=== PATIENT | female | born 1990 | race African-American/Black ===

== ENCOUNTER 2019-07-21 10:46 | Emergency (ER) | payer MEDICAID ==
[~2019-07-21] VITALS: Ht 170.2 cm; Wt 88.0 kg
[2019-07-21] MEDS ORDERED: SODIUM CHLORIDE 0.9% 1,000 ML IV ONE (10:58)
[2019-07-21 12:04] LABS: BASOPHILS % 0.5 % (0.0-2.0); EOSINOPHILS % 1.5 % (0.0-5.0); HEMATOCRIT. 37.6 % (36.0-48.0); HEMOGLOBIN. 12.5 g/dL (12.0-16.0); LYMPHOCYTES % 27.1 % (20.0-50.0); MEAN CORPUSCULAR HEMOGLOBIN 27.8 pg (28.0-32.0); MEAN CORPUSCULAR VOLUME 83.7 fL (81.0-99.0); MEAN PLATELET VOLUME 10.3 fl (7.4-10.4); MONOCYTES % 7.3 % (2.0-8.0); NEUTROPHILS % 63.6 % (40.0-76.0); PLATELET 231 x1000/uL (130-400); RED BLOOD CELL COUNT 4.49 mill/uL (4.2-5.4); RED CELL DISTRIBUTION WIDTH 13.1 % (11.6-14.6)
[2019-07-21 12:13] LABS: PROTHROMBIN TIME 10.7 sec (9.6-11.0)
[2019-07-21 12:14] LABS: CHLORIDE 107 mEq/L (98-107)
[2019-07-21 12:21] LABS: CLARITY URINE CLEAR (CLEAR); COLOR URINE YELLOW (YELLOW); KETONES URINE NEGATIVE (NEGATIVE); LEUKOCYTE ESTERASE URINE NEGATIVE (NEGATIVE); NITRITE URINE NEGATIVE (NEGATIVE); OCCULT BLOOD URINE 2+ (NEGATIVE); PROTEIN URINE NEGATIVE (NEGATIVE); SPECIFIC GRAVITY URINE 1.003 (1.005-1.030); UROBILINOGEN URINE 0.2 E.U./dL (0.2-1.0)
[2019-07-21 12:38] LABS: B-HCG QUANTITATIVE 1161 mIU/mL (<3)
[2019-07-21 12:38] LABS: CANNABINOID URINE SCREEN NEGATIVE (NEGATIVE); METHADONE URINE SCREEN NEGATIVE (NEGATIVE); OPIATES URINE SCREEN NEGATIVE (NEGATIVE); PHENCYCLIDINE URINE SCREEN NEGATIVE (NEGATIVE)
[2019-07-21 12:39] LABS: *AMPHETAMINES SCREEN URINE NEGATIVE (NEGATIVE); *BARBITURATES SCREEN URINE NEGATIVE (NEGATIVE); *BENZODIAZEPINES SCREEN URINE NEGATIVE (NEGATIVE); *COCAINE SCREEN URINE NEGATIVE (NEGATIVE)
[2019-07-21] MEDS ORDERED: FENTANYL CITRATE/PF 50MCG/ML 2ML VIAL IV ONE (13:00)
[2019-07-21] MEDS ORDERED: ONDANSETRON HCL 4MG/2ML INJ IV ONE ×2 (13:00→18:45)
[2019-07-21 13:48] LABS: HCG SCREEN POSITIVE
[2019-07-21] MEDS ORDERED: ACETAMINOPHEN 325MG TABLET PO ONE ×2 (15:00→17:30)
[2019-07-21] MEDS ORDERED: METHOTREXATE SODIUM/PF 50 MG/2 ML VIAL IM NR (17:00)
[2019-07-21] MEDS ORDERED: MORPHINE SULFATE 4 MG/ML CPJ (NOT FOR IM USE) IV ONE (18:45)
[2019-07-21 21:29] VITALS: BP 115/75
[2019-07-24] MEDS ORDERED: IBUP-2029 MT (06:30)
== END 2019-07-21 21:39 | disposition home or self-care (01) ==
LOC: ER 10:46 → CANRESERV 16:24 → ENRESERV 16:24 → CANBEDREQ 17:58 → ER 21:39
DX: O46.91 Antepartum hemorrhage, unspecified, first trimester (principal); O00.90 Unspecified ectopic pregnancy without intrauterine pregnancy; O99.411 Diseases of the circulatory system complicating pregnancy, first trimester; I49.9 Cardiac arrhythmia, unspecified; Z3A.01 Less than 8 weeks gestation of pregnancy
CPT/HCPCS: 36415; 76801; 76817; 80053; 80305; 81003; 81025; 84702; 84703; 85025; 85610; 86850; 86900; 86901; 87086; 93005; 96374; 96375; 96376; 99284; J2270; J2405; J3010; J7030; J9260; Z7610; 99291

== ENCOUNTER 2019-07-23 11:35 | Inpatient (IN) | payer MEDICAID ==
[~2019-07-23] VITALS: Ht 153.9 cm; Wt 87.6 kg
[2019-07-23] MEDS ORDERED: SODIUM CHLORIDE 0.9% 1,000 ML IV ONE (12:06)
[2019-07-23 13:13] LABS: BASOPHILS % 0.2 % (0.0-2.0); EOSINOPHILS % 0.3 % (0.0-5.0); HEMATOCRIT. 36.7 % (36.0-48.0); HEMOGLOBIN. 12.1 g/dL (12.0-16.0); LYMPHOCYTES % 8.8 % (20.0-50.0); MEAN CORPUSCULAR HEMOGLOBIN 27.6 pg (28.0-32.0); MEAN CORPUSCULAR VOLUME 83.5 fL (81.0-99.0); MEAN PLATELET VOLUME 9.8 fl (7.4-10.4); MONOCYTES % 3.4 % (2.0-8.0); NEUTROPHILS % 87.3 % (40.0-76.0); PLATELET 212 x1000/uL (130-400); RED CELL DISTRIBUTION WIDTH 13.1 % (11.6-14.6)
[2019-07-23 13:18] LABS: CHLORIDE 106 mEq/L (98-107)
[2019-07-23 13:19] LABS: INR 1.1; PROTHROMBIN TIME 11.4 sec (9.6-11.0)
[2019-07-23 13:28] LABS: B-HCG QUANTITATIVE 452 mIU/mL (<3); HCG SCREEN POSITIVE
[2019-07-23] MEDS ORDERED: MORPHINE SULFATE 4 MG/ML CPJ (NOT FOR IM USE) IV ONE (14:45)
[2019-07-23] MEDS ORDERED: ONDANSETRON HCL 4MG/2ML INJ IV ONE (14:45)
[2019-07-23 16:01] LABS: CLARITY URINE CLOUDY (CLEAR); COLOR URINE ORANGE (YELLOW); KETONES URINE 2+ (NEGATIVE); LEUKOCYTE ESTERASE URINE NEGATIVE (NEGATIVE); NITRITE URINE NEGATIVE (NEGATIVE); OCCULT BLOOD URINE 3+ (NEGATIVE); PH URINE 6.5 (4.5-8.0); PROTEIN URINE TRACE (NEGATIVE); SPECIFIC GRAVITY URINE 1.007 (1.005-1.030); UROBILINOGEN URINE 0.2 E.U./dL (0.2-1.0)
[2019-07-23 16:18] LABS: *AMPHETAMINES SCREEN URINE NEGATIVE (NEGATIVE); *BARBITURATES SCREEN URINE NEGATIVE (NEGATIVE); *BENZODIAZEPINES SCREEN URINE NEGATIVE (NEGATIVE)
[2019-07-23 16:19] LABS: *COCAINE SCREEN URINE NEGATIVE (NEGATIVE); CANNABINOID URINE SCREEN NEGATIVE (NEGATIVE); METHADONE URINE SCREEN NEGATIVE (NEGATIVE); PHENCYCLIDINE URINE SCREEN NEGATIVE (NEGATIVE)
[2019-07-23] MEDS ORDERED: CEFAZOLIN 2000MG PREMIX 100 ML IV ONE (16:30)
[2019-07-23 16:33] LABS: OPIATES URINE SCREEN PRESUMTIVE POSITIVE (NEGATIVE)
[2019-07-23] MEDS ORDERED: BUPIVACAINE HCL 0.5% (5MG/ML) 50ML ONE (16:50)
[2019-07-23] MEDS ORDERED: FENTANYL CITRATE/PF 50MCG/ML 2ML VIAL ONE (16:50)
[2019-07-23] MEDS ORDERED: PROPOFOL 200MG/20ML VIAL IV ONE (16:50)
[2019-07-23] MEDS ORDERED: ROCURONIUM BROMIDE 10MG/ML VIAL 5ML IV ONE (16:50)
[2019-07-23] MEDS ORDERED: CEFAZOLIN SODIUM 1000MG/VIAL ONE (16:50)
[2019-07-23] MEDS ORDERED: LIDOCAINE HCL/PF 1% 10 MG/ML 5ML VIAL ONE (16:50)
[2019-07-23] MEDS ORDERED: MIDAZOLAM HCL 2 MG/2 ML VIAL ONE (16:50)
[2019-07-23] MEDS ORDERED: SKIN ADHESIVE 0.7 GM EA TOP ONE (16:50)
[2019-07-23] MEDS ORDERED: METOCLOPRAMIDE HCL 10MG/2ML VIAL ONE (16:50)
[2019-07-23] MEDS ORDERED: MORPHINE SULFATE 2 MG/ML CPJ (NOT FOR IM USE) IV ONE (16:50)
[2019-07-23] MEDS ORDERED: SUCCINYLCHOLINE CHLORIDE 200MG/10ML IV ONE (16:50)
[2019-07-23] MEDS ORDERED: PHENYLEPHRINE HCL 10 MG/ML 1ML (IV VIAL) IV ONE (16:53)
[2019-07-23] MEDS ORDERED: EPHEDRINE SULFATE 50MG/ML VIAL ONE (16:53)
[2019-07-23] MEDS ORDERED: ONDANSETRON HCL 4MG/2ML INJ IV PRN ×2 (17:30→19:45)
[2019-07-23] MEDS ORDERED: HYDROMORPHONE HCL/PF 2MG/ML CPJ IV PRN (17:30)
[2019-07-23] MEDS ORDERED: FENTANYL CITRATE/PF 50MCG/ML 2ML VIAL IV PRN (17:30)
[2019-07-23] MEDS ORDERED: DEXAMETHASONE 4MG/ML 1ML VIAL ONE (17:39)
[2019-07-23] MEDS: LACTATED RINGERS 1,000 ML IV SCH (17:42)
[2019-07-23] MEDS ORDERED: BUPIVACAINE HCL/PF 0.5% (5MG/ML) 10ML ONE (17:51)
[2019-07-23] MEDS ORDERED: BUPIVACAINE HCL/EPINEPHRINE/PF 0.5%/0.0005 10ML ONE (17:51)
[2019-07-23] MEDS ORDERED: CEFAZOLIN 2000MG in DEXTROSE 5% WATER 100ML IV NR (18:00)
[2019-07-23] MEDS ORDERED: HYDROMORPHONE HCL/PF 2MG/ML (OR) ONE (18:31)
[2019-07-23] MEDS ORDERED: NEOSTIGMINE METHYLSULFATE 1MG/ML 10 ML VIAL ONE (18:37)
[2019-07-23] MEDS ORDERED: GLYCOPYRROLATE 0.2 MG/ML 2ML VIAL ONE ×2 (18:37→19:04)
[2019-07-23] MEDS ORDERED: KETOROLAC 30MG/ML VIAL IV PRN (19:45)
[2019-07-23] MEDS ORDERED: ACETAMINOPHEN 650MG SUPP PR PRN (19:45)
[2019-07-23 20:00] VITALS: BP 107/58
[2019-07-23] MEDS ORDERED: KETOROLAC 30MG/ML VIAL IM NR (20:28)
[2019-07-23] MEDS: FAMOTIDINE 20MG/2ML VIAL IV SCH (20:38)
[2019-07-23] MEDS ORDERED: KETOROLAC 60MG/2ML VIAL IM NR (21:00)
[2019-07-24] VITALS: BP 108/75
[2019-07-24] MEDS: LACTATED RINGERS 1,000 ML IV SCH ×2 (01:29→08:42)
[2019-07-24 04:00] VITALS: BP 99/64
[2019-07-24] MEDS ORDERED: IBUP-2029 MT (06:30)
[2019-07-24] MEDS ORDERED: POTASSIUM CHLORIDE 20MEQ TABLET SR PO NR (06:30)
[2019-07-24 07:09] LABS: BASOPHILS % 0.1 % (0.0-2.0); HEMATOCRIT. 33.9 % (36.0-48.0); HEMOGLOBIN. 11.4 g/dL (12.0-16.0); LYMPHOCYTES % 8.1 % (20.0-50.0); MEAN PLATELET VOLUME 10.1 fl (7.4-10.4); NEUTROPHILS % 89.8 % (40.0-76.0); PLATELET 208 x1000/uL (130-400); RED BLOOD CELL COUNT 4.08 mill/uL (4.2-5.4); RED CELL DISTRIBUTION WIDTH 12.9 % (11.6-14.6)
[2019-07-24 07:54] VITALS: BP 125/80
[2019-07-24 08:00] VITALS: BP 19/79
[2019-07-24] MEDS: FAMOTIDINE 20MG/2ML VIAL IV SCH ×2 (08:14→08:25)
[2019-07-24] MEDS ORDERED: KETOROLAC 60MG/2ML VIAL IM NR (11:30)
[2019-07-24 11:36] VITALS: BP 119/79
== END 2019-07-24 12:26 | disposition home or self-care (01) | DRG 545 ==
LOC: ER 11:35 → ENRESERV 15:50 → 6EST 16:55
PROVIDERS: ADMIT Specialist; ATTEND Specialist
PROC: 10T24ZZ Resection of Products of Conception, Ectopic, Percutaneous Endoscopic Approach (ICD-10-PCS; principal; 2019-07-23)
PROC: 0UB54ZZ Excision of Right Fallopian Tube, Percutaneous Endoscopic Approach (ICD-10-PCS; 2019-07-23)
DX: O00.101 Right tubal pregnancy without intrauterine pregnancy (principal); K66.1 Hemoperitoneum; O99.511 Diseases of the respiratory system complicating pregnancy, first trimester; E87.6 Hypokalemia; O26.891 Other specified pregnancy related conditions, first trimester; J45.909 Unspecified asthma, uncomplicated; Z3A.01 Less than 8 weeks gestation of pregnancy; Z91.013 Allergy to seafood
CPT/HCPCS: 36415; 76801; 80053; 80305; 81003; 84702; 84703; 85025; 86850; 86900; 88305; 96374; 99291; J0171; J0330; J0690; J1100; J1170; J1885; J2250; J2270; J2370; J2405; J2704; J2710; J2765; J3010; J3490; J7030; J7040; J7060